=== PATIENT | female | born 1975 | race Hispanic/Latino ===

== ENCOUNTER 2017-12-12 13:10 | Emergency (ER) | payer OTHER, MEDICARE ==
[~2017-12-12 13:10] MED LIST: CEPH500C2 PO; DULO20CA17 PO; HYOS-28 PO; METO5TAB2 PO; MULT1TAB88 PO; MV C1CAP5 PO; ONDA8TAB11 PO; PANT40TA25 PO; POTA-79 PO
[2017-12-12] MEDS ORDERED: ONDANSETRON HCL 4 MG/2 ML VIAL ONE (14:03)
[2017-12-12] MEDS ORDERED: SODIUM CHLORIDE 0.9% 1000ML 1,000 ML IV ONE (14:03)
[2017-12-12] MEDS ORDERED: MORPHINE SULFATE 4 MG/1ML SYG ONE (14:04)
[2017-12-12 14:20] LABS: EOSINOPHILS % (AUTO) 0.4 % (0.0-8.0); HEMATOCRIT 43.1 % (36-48); LYMPHOCYTES % (AUTO) 12.6 % (21.0-51.0); MEAN CORPUSCULAR HEMOGLOBIN 29.1 pg (27.0-33.0); MEAN CORPUSCULAR HGB CONC 34.2 g/dL (32.0-36.0); MEAN CORPUSCULAR VOLUME 85.2 fL (79-99); MONOCYTES % (AUTO) 2.9 % (3.0-13.0); NEUTROPHILS % (AUTO) 83.1 % (40.0-77.0); NUCLEATED RED BLOOD CELLS 0.1 % (0.0-0.19); PLATELET COUNT (AUTO) 289 K/uL (130-400); RED BLOOD CELL COUNT(AUTO) 5.06 MIL/uL (4.00-5.50); RED CELL DISTRIBUTION WIDTH 14.2 % (11.0-15.5); WHITE BLOOD COUNT (AUTO) 11.3 K/uL (4.8-10.8)
[2017-12-12 14:32] LABS: INR 0.91 (0.85-1.15); PARTIAL THROMBOPLASTIN TIME 27.7 SEC (26.3-35.5); PROTHROMBIN TIME 9.6 SEC (9.6-11.6)
[2017-12-12 14:34] LABS: CREATININE 0.7 mg/dL (0.5-1.5); POTASSIUM 3.8 mmol/L (3.5-5.1)
[2017-12-12 14:38] LABS: ALBUMIN 3.5 g/dL (3.5-5.0); BILIRUBIN,TOTAL 0.5 mg/dL (0.2-1.0); TOTAL PROTEIN, SERUM 8.1 g/dL (6.0-8.3)
[2017-12-12 14:44] LABS: B-TYPE NATRIURETIC PEPTIDE 20 pg/mL (0-100)
[2017-12-12 15:00] LABS: APPEARANCE,URINE Cloudy (CLEAR); BILIRUBIN,URINE Negative (NEGATIVE); COLOR,URINE Yellow (YELLOW); GLUCOSE, URINE (UA) Negative (NEGATIVE); KETONES,URINE 40 mg/dL (NEGATIVE); LEUKOCYTE ESTERASE ,URINE Moderate (NEGATIVE); NITRATE,URINE Negative (NEGATIVE); OCCULT BLOOD,URINE Negative (NEGATIVE); PROTEIN,URINE Negative (NEGATIVE)
[2017-12-12 15:06] LABS: HCG,QUAL RESULT NEGATIVE (NEGATIVE)
[2017-12-12 15:15] LABS: BACTERIA,URINE Moderate /HPF (None Seen); RBC,URINE None Seen /HPF (0-1); SQUAMOUS EPITHELIAL CELL,UR 30-50 /HPF (0-2); WBC,URINE 0-1 /HPF (0-1)
== END 2017-12-12 15:49 | disposition home or self-care (01) ==
LOC: EDH 13:10
DX: N20.0 Calculus of kidney (principal)
CPT/HCPCS: 36415; 74176; 80053; 81001; 81025; 83605; 83690; 83880; 84484; 85025; 85610; 85730; 93005; 96361; 96374; 96375; 99285; J2270; J2405; J7030

== ENCOUNTER → 2019-06-22 | Outpatient (CLI) | payer OTHER, MEDICARE ==
[~2019-06-22] MED LIST changes: -DULO20CA17 PO; +DULO20CA18 PO; +OMEP40CA13 PO; -ONDA8TAB11 PO; +ONDA8TAB65 PO; +SERT25TA PO; +SULF1TAB42 PO; +TRAM50TA4 PO
[2019-06-22 11:28] LABS: BASOPHILS % (AUTO) 0.4 % (0.0-5.0); EOSINOPHILS % (AUTO) 3.1 % (0.0-8.0); HEMATOCRIT 40.2 % (36-48); LYMPHOCYTES % (AUTO) 17.5 % (21.0-51.0); MEAN CORPUSCULAR HEMOGLOBIN 27.4 pg (27.0-33.0); MEAN CORPUSCULAR HGB CONC 32.6 g/dL (32.0-36.0); MEAN CORPUSCULAR VOLUME 84.1 fL (79-99); MONOCYTES % (AUTO) 5.5 % (3.0-13.0); NEUTROPHILS % (AUTO) 72.3 % (40.0-77.0); PLATELET COUNT (AUTO) 353 K/uL (130-400); RED BLOOD CELL COUNT(AUTO) 4.78 MIL/uL (4.00-5.50); RED CELL DISTRIBUTION WIDTH 15.5 % (11.0-15.5); WHITE BLOOD COUNT (AUTO) 9.7 K/uL (4.8-10.8)
[2019-06-22 11:40] LABS: CREATININE 0.9 mg/dL (0.5-1.5); POTASSIUM 4.4 mmol/L (3.5-5.1)
== END | disposition home or self-care (01) ==
LOC: LAB 11:01
PROVIDERS: ATTEND Urology
DX: N13.39 Other hydronephrosis (principal)
CPT/HCPCS: 36415; 80048; 85025

== ENCOUNTER 2019-06-23 12:12 | Observation (INO) | payer OTHER, MEDICARE ==
[2019-06-23] VITALS (14 sets, daily range): BP systolic 119–139; BP diastolic 69–82
[~2019-06-23] VITALS: Ht 167.6 cm; Wt 59.0 kg
[~2019-06-23 12:12] MED LIST changes: +IOHEXOL 350 MG/ML 100ML INFUS..BTL IV ONE; -OMEP40CA13 PO; -SERT25TA PO; -SULF1TAB42 PO; -TRAM50TA4 PO
--- NOTE | 2019-06-23 13:10 | NUR ---
DIRECT ADMIT pt direct admission from Dr Briggs office ,[facility] room [facility]2 ,pt co pain right flank ,pain rates a 10
[2019-06-23 13:13] LABS: APPEARANCE,URINE Clear (CLEAR); BILIRUBIN,URINE Negative (NEGATIVE); COLOR,URINE Yellow (YELLOW); GLUCOSE, URINE (UA) Negative (NEGATIVE); KETONES,URINE 40 mg/dL (NEGATIVE); LEUKOCYTE ESTERASE ,URINE Small (NEGATIVE); NITRATE,URINE Negative (NEGATIVE); OCCULT BLOOD,URINE Trace (NEGATIVE); PROTEIN,URINE Negative (NEGATIVE); UROBILINOGEN,URINE 0.2 mg/dL (0.2-1.0)
[2019-06-23] MEDS ORDERED: LACTATED RINGERS 1000ML 1,000 ML IV ONE (13:24)
[2019-06-23 13:25] LABS: BASOPHILS % (AUTO) 0.4 % (0.0-5.0); EOSINOPHILS % (AUTO) 1.5 % (0.0-8.0); HEMATOCRIT 38.7 % (36-48); LYMPHOCYTES % (AUTO) 10.9 % (21.0-51.0); MEAN CORPUSCULAR HGB CONC 32.8 g/dL (32.0-36.0); MEAN CORPUSCULAR VOLUME 82.2 fL (79-99); MONOCYTES % (AUTO) 5.4 % (3.0-13.0); NEUTROPHILS % (AUTO) 81.1 % (40.0-77.0); PLATELET COUNT (AUTO) 341 K/uL (130-400); RED BLOOD CELL COUNT(AUTO) 4.71 MIL/uL (4.00-5.50); RED CELL DISTRIBUTION WIDTH 15.2 % (11.0-15.5); WHITE BLOOD COUNT (AUTO) 12.4 K/uL (4.8-10.8)
[2019-06-23 13:41] LABS: BACTERIA,URINE Rare /HPF (None Seen); RBC,URINE 0-1 /HPF (0-1); SQUAMOUS EPITHELIAL CELL,UR Few /HPF (0-2)
[2019-06-23 13:47] LABS: CREATININE 0.9 mg/dL (0.5-1.5)
[2019-06-23] MEDS ORDERED: FENTANYL CITRATE PF 50 MCG/1 ML 2ML VIAL ONE ×2 (14:15→16:08)
[2019-06-23] MEDS ORDERED: IOHEXOL-350 50ML VIAL IV ONE (14:27)
--- NOTE | 2019-06-23 14:45 | NUR ---
Hospitalist Vipul FELDERP here ,in holding area assessed notified house calls nurse practitioner Solis RN ,need for room on medical floor
--- NOTE | 2019-06-23 15:00 | NUR ---
RX called [facility] for list of medications patient takes daily Addendum: 06/23/19 at 1601 by EMILEE NOLAND RN RN Amended: Links added.
[2019-06-23] MEDS ORDERED: MORPHINE SULFATE 2 MG/ML 1ML SYG IVP PRN (15:15)
[2019-06-23] MEDS ORDERED: ACETAMINOPHEN 325 MG TAB PO PRN ×2 (15:15→20:00)
[2019-06-23] MEDS ORDERED: ONDANSETRON HCL 4 MG/2 ML VIAL IVP PRN ×2 (15:15→20:00)
[2019-06-23] MEDS ORDERED: LACTATED RINGERS 1000ML 1,000 ML IV SCH (15:15)
[2019-06-23] MEDS ORDERED: OMEP40CA13 PO (15:28)
[2019-06-23] MEDS ORDERED: TRAM50TA4 PO (15:30)
[2019-06-23] MEDS ORDERED: SERT25TA PO ×2 (15:30→15:31)
[2019-06-23] MEDS ORDERED: SULF1TAB42 PO (15:39)
[2019-06-23] MEDS: CEFTRIAXONE SODIUM 1 GM IVP SCH (15:46)
[2019-06-23] MEDS ORDERED: LIDOCAINE PF 2% 5ML ABBOJECT ONE (16:08)
[2019-06-23] MEDS ORDERED: ROCURONIUM 10MG/1ML SYR 10 MG/ML ML ONE (16:08)
[2019-06-23] MEDS ORDERED: PROPOFOL 10 MG/ML 20ML VIAL IV ONE (16:08)
[2019-06-23] MEDS ORDERED: SUCCINYLCHOLINE CHLORIDE 20 MG/ML 10 ML VIAL ONE ×2 (16:08→16:11)
[2019-06-23] MEDS ORDERED: MIDAZOLAM HCL 1 MG/ML 2ML VIAL ONE (16:19)
[2019-06-23] MEDS ORDERED: EPHEDRINE SULFATE 50 MG/ML AMPULE ONE (16:37)
[2019-06-23] MEDS ORDERED: ZOSYN 3.375GM+NS 50ML 50 ML IV ONE (16:48)
[2019-06-23] MEDS ORDERED: ZOSYN 3.375GM+NS 50ML 50 ML IV SCH (17:15)
[2019-06-23] MEDS ORDERED: MEPERIDINE-PF 75 MG/ML SYG IM PRN (20:00)
[2019-06-23] MEDS ORDERED: TRAMADOL HCL 50 MG TABLET PO PRN (20:00)
[2019-06-23] MEDS: FAMOTIDINE/PF 20 MG/2 ML VIAL IV SCH (21:26)
[2019-06-23] MEDS: SODIUM CHLORIDE 0.9% 1000ML 1,000 ML IV SCH (21:26)
[2019-06-24] MEDS: ZOSYN 3.375GM+NS 50ML 50 ML IV SCH ×2 (00:14→09:09)
[2019-06-24 00:15] VITALS: BP 106/60
[2019-06-24 04:54] LABS: BASOPHILS % (AUTO) 0.4 % (0.0-5.0); EOSINOPHILS % (AUTO) 1.1 % (0.0-8.0); HEMATOCRIT 32.9 % (36-48); LYMPHOCYTES % (AUTO) 12.2 % (21.0-51.0); MEAN CORPUSCULAR HEMOGLOBIN 26.8 pg (27.0-33.0); MEAN CORPUSCULAR HGB CONC 32.5 g/dL (32.0-36.0); MEAN CORPUSCULAR VOLUME 82.3 fL (79-99); MONOCYTES % (AUTO) 6.9 % (3.0-13.0); NEUTROPHILS % (AUTO) 78.8 % (40.0-77.0); PLATELET COUNT (AUTO) 282 K/uL (130-400); RED CELL DISTRIBUTION WIDTH 15.5 % (11.0-15.5)
[2019-06-24 05:16] LABS: ALBUMIN 2.6 g/dL (3.5-5.0); BILIRUBIN,TOTAL 0.7 mg/dL (0.2-1.0); CREATININE 0.7 mg/dL (0.5-1.5); POTASSIUM 3.4 mmol/L (3.5-5.1); TOTAL PROTEIN, SERUM 6.3 g/dL (6.0-8.3)
--- NOTE | 2019-06-24 06:00 | NUR ---
F/C F/C DISCONTINUED ORDERED, DTV, INSTRUCT PATIENT TO CALL NURSE WHEN URGE TO VOID, PATIENT VERBALIZES UNDERSTANDING VIA TEACH BACK, CALL FRASER AT REACH
[2019-06-24] MEDS: SODIUM CHLORIDE 0.9% 1000ML 1,000 ML IV SCH (06:04)
[2019-06-24 07:52] VITALS: BP 121/74
[2019-06-24] MEDS ORDERED: SERTRALINE HCL 50 MG TABLET PO SCH (09:00)
[2019-06-24] MEDS: FAMOTIDINE/PF 20 MG/2 ML VIAL IV SCH (09:09)
[2019-06-24] MEDS: CEFTRIAXONE SODIUM 1 GM IVP SCH (16:04)
[2019-06-24 16:30] VITALS: BP 136/74
== END 2019-06-24 17:25 | disposition home or self-care (01) ==
LOC: DAH 12:12 → 3DH 20:24 → INTOOBSV 20:24 → 3DH 20:32 → UNDOADMOB 20:32 → 3DH 21:03 → UNDOADMOB 21:03
PROVIDERS: ADMIT Hospitalist; ATTEND Hospitalist
DX: N13.30 Unspecified hydronephrosis (principal); R10.9 Unspecified abdominal pain
CPT/HCPCS: 36415 ×2; 52332; 52351; 74400; 74420; 80048; 80053; 81001; 81025; 85025 ×2; 87088; 96361 ×2; 96365; 96366; 96372; 96376; A4215; A4221; A4222; A4223; A4344; A4600; A4663; C1758 ×2; C1769 ×2; C2617; G0378 ×5; J0330 ×2; J0696; J2001; J2250; J2543 ×3; J2704; J3010 ×2; J3490 ×3; J7120 ×2; Q9967 ×2

== ENCOUNTER → 2019-08-03 | Outpatient (CLI) | payer OTHER, MEDICARE ==
[~2019-08-03] MED LIST changes: -CEPH500C2 PO; -DULO20CA18 PO; -HYOS-28 PO; -IOHEXOL 350 MG/ML 100ML INFUS..BTL IV ONE; -METO5TAB2 PO; -MULT1TAB88 PO; -MV C1CAP5 PO; +OMEP40CA13 PO; -ONDA8TAB65 PO; -PANT40TA25 PO; -POTA-79 PO; +SERT25TA PO; +SULF1TAB42 PO; +TRAM50TA4 PO
== END | disposition home or self-care (01) ==
LOC: RAH 14:54
PROVIDERS: ATTEND Urology
DX: N13.30 Unspecified hydronephrosis (principal); R33.9 Retention of urine, unspecified
CPT/HCPCS: 78700; A9562

== ENCOUNTER → 2019-08-07 | Outpatient (CLI) | payer OTHER, MEDICARE | END | disposition home or self-care (01) | LOC: RAH 11:08 | PROVIDERS: ATTEND Urology | DX: N20.0 Calculus of kidney (principal); N13.39 Other hydronephrosis ==

== ENCOUNTER 2020-05-29 17:48 | Emergency (ER) | payer OTHER, MEDICARE ==
[~2020-05-29 17:48] MED LIST changes: -OMEP40CA13 PO; +OMEP40CA21 PO
[2020-05-29 18:42] LABS: BASOPHILS % (AUTO) 0.4 % (0.0-5.0); EOSINOPHILS % (AUTO) 1.1 % (0.0-8.0); HEMATOCRIT 39.9 % (36-48); LYMPHOCYTES % (AUTO) 16.9 % (21.0-51.0); MEAN CORPUSCULAR HEMOGLOBIN 27.8 pg (27.0-33.0); MEAN CORPUSCULAR HGB CONC 33.6 g/dL (32.0-36.0); MEAN CORPUSCULAR VOLUME 82.8 fL (79-99); MONOCYTES % (AUTO) 4.8 % (3.0-13.0); NEUTROPHILS % (AUTO) 76.1 % (40.0-77.0); PLATELET COUNT (AUTO) 310 K/uL (130-400); RED BLOOD CELL COUNT(AUTO) 4.82 MIL/uL (4.00-5.50); RED CELL DISTRIBUTION WIDTH 13.4 % (11.0-15.5); WHITE BLOOD COUNT (AUTO) 10.9 K/uL (4.8-10.8)
[2020-05-29 18:53] LABS: CREATININE 0.7 mg/dL (0.5-1.5); POTASSIUM 3.7 mmol/L (3.5-5.1)
[2020-05-29 18:59] LABS: ALBUMIN 3.8 g/dL (3.5-5.0); BILIRUBIN,TOTAL 0.8 mg/dL (0.2-1.0); TOTAL PROTEIN, SERUM 8.5 g/dL (6.0-8.3)
[2020-05-29 19:12] LABS: APPEARANCE,URINE Cloudy (CLEAR); BILIRUBIN,URINE Negative (NEGATIVE); COLOR,URINE Yellow (YELLOW); GLUCOSE, URINE (UA) Negative (NEGATIVE); KETONES,URINE >=160 mg/dL (NEGATIVE); LEUKOCYTE ESTERASE ,URINE Small (NEGATIVE); NITRATE,URINE Negative (NEGATIVE); OCCULT BLOOD,URINE Large (NEGATIVE); PH,URINE 5.5 (5.0-8.0); PROTEIN,URINE POS 1+ mg/dL (NEGATIVE)
[2020-05-29] MEDS ORDERED: ONDANSETRON 4MG INJ ONE (19:38)
[2020-05-29] MEDS ORDERED: TAMSULOSIN HCL 0.4 MG CAP.ER.24H ONE (19:38)
[2020-05-29] MEDS ORDERED: MORPHINE 4 MG SYG ONE (19:39)
[2020-05-29] MEDS ORDERED: KETOROLAC 30MG VIAL (30MG/ML) ONE (19:39)
[2020-05-29 20:01] LABS: BACTERIA,URINE Few /HPF (None Seen)
[2020-05-29 20:02] LABS: MUCUS,URINE Few LPF (None Seen)
== END 2020-05-29 21:06 | disposition home or self-care (01) ==
LOC: EDH 17:48
DX: N39.0 Urinary tract infection, site not specified (principal); N83.202 Unspecified ovarian cyst, left side; Z87.442 Personal history of urinary calculi
CPT/HCPCS: 36415; 74176; 80053; 81001; 83690; 85025; 87088; 96374; 96375; 99284; J1885; J2270; J2405

== ENCOUNTER 2020-06-15 10:01 | Emergency (ER) | payer OTHER, MEDICARE ==
[~2020-06-15 10:01] MED LIST changes: +OMEP40CA13 PO; -OMEP40CA21 PO
[2020-06-15] MEDS ORDERED: MORPHINE SULFATE 4 MG/1ML SYG ONE (10:19)
[2020-06-15] MEDS ORDERED: KETOROLAC TROMETHAMINE 30MG/ML ONE (10:19)
[2020-06-15] MEDS ORDERED: ONDANSETRON HCL 4 MG/2 ML VIAL ONE (10:19)
[2020-06-15 10:33] LABS: BASOPHILS % (AUTO) 0.4 % (0.0-5.0); LYMPHOCYTES % (AUTO) 13.5 % (21.0-51.0); MEAN CORPUSCULAR HEMOGLOBIN 27.2 pg (27.0-33.0); MEAN CORPUSCULAR HGB CONC 32.9 g/dL (32.0-36.0); MEAN CORPUSCULAR VOLUME 82.5 fL (79-99); MONOCYTES % (AUTO) 2.9 % (3.0-13.0); NEUTROPHILS % (AUTO) 81.7 % (40.0-77.0); PLATELET COUNT (AUTO) 306 K/uL (130-400); RED BLOOD CELL COUNT(AUTO) 4.97 MIL/uL (4.00-5.50); RED CELL DISTRIBUTION WIDTH 13.9 % (11.0-15.5)
[2020-06-15 10:44] LABS: APPEARANCE,URINE CLOUDY (CLEAR); BILIRUBIN,URINE SMALL (NEGATIVE); COLOR,URINE YELLOW (YELLOW); GLUCOSE, URINE (UA) NEGATIVE (NEGATIVE); KETONES,URINE 15 mg/dL (NEGATIVE); LEUKOCYTE ESTERASE ,URINE TRACE (NEGATIVE); NITRATE,URINE NEGATIVE (NEGATIVE); OCCULT BLOOD,URINE LARGE (NEGATIVE); PH,URINE 5.5 (5.0-8.0); PROTEIN,URINE 30 mg/dL (NEGATIVE); UROBILINOGEN,URINE 0.2 mg/dL (0.2-1.0)
[2020-06-15 11:21] LABS: BACTERIA,URINE Few /HPF (None Seen)
[2020-06-15 11:26] LABS: ALBUMIN 3.5 g/dL (3.5-5.0); BILIRUBIN,TOTAL 0.7 mg/dL (0.2-1.0); CREATININE 0.7 mg/dL (0.5-1.5); POTASSIUM 3.4 mmol/L (3.5-5.1); TOTAL PROTEIN, SERUM 7.3 g/dL (6.0-8.3)
== END 2020-06-15 16:35 | disposition home or self-care (01) ==
LOC: EDH 10:01
DX: N23 Unspecified renal colic (principal); Z98.890 Other specified postprocedural states; Z87.442 Personal history of urinary calculi
CPT/HCPCS: 36415; 74176; 80053; 81001; 82150; 83690; 85025; 93005; 96361; 96374; 96375; 99285; J1885; J2270; J2405; J7030

== ENCOUNTER 2022-05-05 05:39 | Day surgery (SDC) | payer OTHER, MEDICARE ==
[2022-05-01 09:00] LABS: BASOPHILS % (AUTO) 0.7 % (0.0-5.0); EOSINOPHILS % (AUTO) 3.5 % (0.0-8.0); HEMATOCRIT 45.6 % (36-48); LYMPHOCYTES % (AUTO) 24.4 % (21.0-51.0); MEAN CORPUSCULAR HEMOGLOBIN 29.3 pg (27.0-33.0); MEAN CORPUSCULAR HGB CONC 32.7 g/dL (32.0-36.0); MEAN CORPUSCULAR VOLUME 89.8 fL (79-99); MONOCYTES % (AUTO) 5.3 % (3.0-13.0); NEUTROPHILS % (AUTO) 65.3 % (40.0-77.0); PLATELET COUNT (AUTO) 288 K/uL (130-400); RED BLOOD CELL COUNT(AUTO) 5.08 MIL/uL (4.00-5.50); RED CELL DISTRIBUTION WIDTH 13.2 % (11.0-15.5); WHITE BLOOD COUNT (AUTO) 7.4 K/uL (4.8-10.8)
[2022-05-01 09:12] VITALS: BP 116/87
[2022-05-01 09:14] LABS: INR 0.94 (0.85-1.15); PROTHROMBIN TIME 10.3 SEC (9.6-11.6)
[2022-05-01 09:15] LABS: PARTIAL THROMBOPLASTIN TIME 30.2 SEC (26.3-35.5)
[2022-05-01 09:17] LABS: CREATININE 0.7 mg/dL (0.5-1.5); POTASSIUM 4.3 mmol/L (3.5-5.1)
[2022-05-05 06:04] VITALS: BP 119/79
[2022-05-05] MEDS ORDERED: 0.9%NACL 1000ML 1,000 ML IV ONE (06:06)
[2022-05-05] MEDS ORDERED: IODIXANOL 320 MG/ML 100 ML VIAL ONE (07:06)
[2022-05-05] MEDS ORDERED: LIDOCAINE HCL 1% MDV 50ML VIAL ONE (07:07)
[2022-05-05 08:12] VITALS: BP 117/70
[2022-05-05 08:23] VITALS: BP 109/74
== END 2022-05-05 08:43 | disposition home or self-care (01) ==
LOC: DAH 05:39
PROVIDERS: ATTEND Urology
DX: N13.1 Hydronephrosis with ureteral stricture, not elsewhere classified (principal); Z90.49 Acquired absence of other specified parts of digestive tract; Z90.721 Acquired absence of ovaries, unilateral; Z79.01 Long term (current) use of anticoagulants; Z79.899 Other long term (current) drug therapy
CPT/HCPCS: 80048; 85025; 85610; 85730; 36415; 50435; C1769; C1729; J7030; J1644; J3490; Q9967; A4215; A4222; A4221; A4663; A4216; A4606; A4223 ×3